=== PATIENT | male | born 1985 | race Caucasian/White ===

== ENCOUNTER 2022-08-14 17:52 | Emergency (ER) | payer OTHER ==
[2022-08-14] MEDS ORDERED: Sodium Chloride 0.9% 1000 ML 1,000 ML IV STA (19:45)
[2022-08-14] MEDS ORDERED: Sodium Chloride 0.9% 1000 ML 1,000 ML ONE (19:47)
[2022-08-14 20:17] LABS: Absolute Neutrophil Ct (ANC) 7.55 x10^3/uL (1.4-6.9); BASOPHIL % 0.7 % (0.0-0.4); Basophil (Absolute #) 0.07 x10^3/uL (0-0.4); Eosinophil % 2.3 % (0.00-5.0); Eosinophil (Absolute #) 0.24 x10^3/uL (0-0.5); Hemoglobin 13.3 g/dL (12.5-18.0); IMMATURE GRAN # 0.03 x10^3u/L (0.00-0.03); IMMATURE GRAN % 0.3 % (0.00-0.4); Lymphocyte (Absolute #) 1.68 x10^3/uL (1.0-4.6); Lymphocytes % 16.2 % (24.0-44.0); Mean Cell Volume 90.1 fL (78-100); Mean Corpuscular Hemoglobin 29.2 pg (26-32); Mean Corpuscular Hgb Concent. 32.4 g/dL (32-36); Mean Platelet Volume 9.5 fL (7.5-11.0); Monocyte (Absolute #) 0.83 x10^3/uL (0.0-1.3); Neutrophil % 72.5 % (36.0-66.0); Platelet Count 406 x10^3/uL (150-450); Red Blood Count 4.55 x10^6/uL (4.1-5.6); Red Cell Distribution Width 12.5 % (11.5-14.0); White Blood Count 10.4 x10^3/uL (4.0-10.5)
[2022-08-14 20:19] VITALS: O2SAT 100
[2022-08-14 20:24] LABS: Appearance Clear (Clear); Bacteria None Seen /HPF (None Seen); Bilirubin Negative (Negative); Blood Negative (Negative); Epithelial Cells None Seen /HPF (None Seen); Glucose, Urine Negative (Negative); Hyaline Casts NONE SEEN /LPF (0-2); Ketones Trace (Negative); Leukocyte Esterase Negative (Negative); Nitrite Negative (Negative); Protein,Urine Dip Negative (Negative); RBC 0-2 /HPF (0-5); Specific Gravity 1.015 (1.005-1.030); WBC 0-2 /HPF (0-5)
[2022-08-14 20:29] LABS: ADD URINE CULTURE? NO (NO)
[2022-08-14 20:32] LABS: ALBUMIN 4.3 g/dL (3.5-5.0); ALKALINE PHOSPHATASE 48 U/L (38-126); ANION GAP 15.9 MEQ/L (5-15); BLOOD UREA NITROGEN 17 mg/dL (9-20); CHLORIDE 100 mmol/L (98-107); Calcium 9.1 mg/dL (8.4-10.2); Carbon Dioxide 24 mmol/L (22-30); Creatinine 1 0.88 mg/dL (0.66-1.25); EST GLOMERULAR FILTRATION RATE > 60.0 ML/MIN; Glucose 101 mg/dL (74-106); Potassium 4.2 mmol/L (3.5-5.1); SGOT/AST 31 U/L (17-59); SGPT/ALT 34 U/L (0-50); SODIUM 136 mmol/L (137-145); Total Protein 7.3 g/dL (6.3-8.2)
--- NOTE | 2022-08-14 21:01 | ERPHSYRPT ---
- History of Present Illness Time Seen by Provider: 08/14/22 20:56 Source: patient Exam Limitations: no limitations Patient Subjective Stated Complaint: pt here for feeling funny at [employer] today, he felt dizzy. this week he states he tripped and fell and busted mouth, was seen and placed on antiboitcs and pain meds. no loc, he thinks that hes meds are making him not feel well because he is not eating well due to mouth injury Triage Nursing Assessment: pt alert, arrived per wc, able to undress self, skin w.d.p, no edema noted, has yellow bruising to nose, and sore to mouth Physician History: Patient is a 37-year-old male presents to our ED with a near syncopal episode at a restaurant. Patient states that he has not been eating as much due to stress. Patient's father recently expectedly . Patient currently on antibiotics, clindamycin for a intraoral mucosal injury sustained a few days ago after a fall. Patient went to the emergency department at that time had a CT head was discharged on clindamycin. Patient otherwise feels well. Patient voices no other complaints or concerns at this time. Portions of this note were created with voice recognition technology. There may be grammatical, spelling, punctuation or sound alike errors Timing/Duration: today Severity: moderate Modifying Factors: Improves With: nothing Associated Symptoms: denies symptoms Allergies/Adverse Reactions: amoxicillin Allergy (Verified 08/14/22 18:13) Home Medications: ALPRAZolam 0.25 MG [xanAX 0.25 MG] 0.25 mg PO DAILY 08/14/22 [History] Dextroamphetamine/Amphetamine [Adderall Xr 25 mg Capsule] 25 mg PO DAILY 08/14/22 [History] Hydrocodone/Acetaminophen [Hydrocodone-Acetamin 5-325 mg] 1 ea QID 08/14/22 [History] clindamycin HCL [Clindamycin HCl] 3 ea TID 08/14/22 [History] Hx Tetanus, Diphtheria Vaccination/Date Given: Yes Hx Influenza Vaccination/Date Given: No Hx Pneumococcal Vaccination/Date Given: No Immunizations Up to Date: Yes Travel Risk - International Travel Have you traveled outside of the country in past 3 weeks: No - Coronavirus Screening Close contact with a COVID-19 positive Pt in past 14-21 Days: No - Vaccine Status Have you recieved a Covid-19 vaccination: Yes Category Analyst: Moderna - Vaccination Dates Date of 2cond Vaccination (if applicable): 2020 - Review of Systems Constitutional: No Symptoms, No Fever, No Chills Eyes: No Symptoms Ears, Nose, & Throat: No Symptoms Respiratory: No Symptoms, No Cough, No Dyspnea Cardiac: No Symptoms, No Chest Pain, No Edema, No Syncope Abdominal/Gastrointestinal: No Symptoms, No Abdominal Pain, No Nausea, No Vomiting, No Diarrhea Genitourinary Symptoms: No Symptoms, No Dysuria Musculoskeletal: No Symptoms, No Back Pain, No Neck Pain Skin: No Symptoms, No Rash Neurological: No Symptoms, No Dizziness, No Focal Weakness, No Sensory Changes Psychological: No Symptoms Endocrine: No Symptoms Hematologic/Lymphatic: No Symptoms Immunological/Allergic: No Symptoms All Other Systems: Reviewed and Negative - Past Medical History Pertinent Past Medical History: No - Past Surgical History Past Surgical History: Yes Gastrointestinal: Appendectomy - Social History Smoking Status: Never smoker Exposure to second hand smoke: No Drug Use: marijuana Patient Lives Alone: No - Nursing Vital Signs Nursing Vital Signs: Initial Vital Signs Temperature 97.2 F 08/14/22 18:11 Pulse Rate 64 08/14/22 18:11 Respiratory Rate 18 08/14/22 18:11 Blood Pressure 124/71 08/14/22 18:11 O2 Sat by Pulse Oximetry 98 08/14/22 18:11 Pain Scale Pain Intensity 3 - Physical Exam General Appearance: no apparent distress, alert Eye Exam: PERRL/EOMI, eyes nml inspection Ears, Nose, Throat Exam: normal ENT inspection, TMs normal, pharynx normal, moist mucous membranes Neck Exam: normal inspection, non-tender, supple, full range of motion Respiratory Exam: normal breath sounds, lungs clear, airway intact, No respiratory distress Cardiovascular Exam: regular rate/rhythm, normal heart sounds, normal peripheral pulses Gastrointestinal/Abdomen Exam: soft, normal bowel sounds, No tenderness, No mass Back Exam: normal inspection, normal range of motion, No CVA tenderness, No vertebral tenderness Extremity Exam: normal inspection, normal range of motion, pelvis stable Neurologic Exam: alert, oriented x 3, cooperative, normal mood/affect, nml cerebellar function, nml station & gait, sensation nml, No motor deficits Skin Exam: normal color, warm, dry, No rash Lymphatic Exam: No adenopathy SpO2 Interpretation: normal SpO2: 100 O2 Delivery: Room Air - Course Nursing assessment & vital signs reviewed: Yes EKG Interpreted by Me: RATE (70), Sinus Rhythm, NORMAL AXIS, NORMAL INTERVALS, Right Bundle Branch Block (Incomplete right bundle branch block.) Ordered Tests: Active Orders 24 hr Category Date Time Status Inspector Technician STAT Care 08/14/22 19:46 Active IV Insertion STAT Care 08/14/22 19:45 Active Pulse Oximetry (ED) STAT Care 08/14/22 19:45 Active CBC W DIFF Stat Lab 08/14/22 20:14 Completed CMP Stat Lab 08/14/22 20:14 Completed TROPONIN Q4H Lab 08/14/22 20:14 Completed TROPONIN Q4H Lab 08/15/22 00:00 Ordered TROPONIN Q4H Lab 08/15/22 04:00 Ordered UA W/RFX UR CULTURE Stat Lab 08/14/22 19:55 Completed Medication Summary Discontinued Medications Generic Name Dose Route Start Last Admin Trade Name Jhonyq PRN Reason Stop Dose Admin Sodium Chloride 1,000 mls @ 999 mls/hr 08/14/22 19:45 08/14/22 19:48 Sodium Chloride 0.9% 1000 Ml IV 08/14/22 20:45 999 mls/hr .Q1H1M STA Administration Sodium Chloride Confirm 08/14/22 19:47 Sodium Chloride 0.9% 1000 Ml Administered 08/14/22 19:48 Dose 1,000 mls @ ud .ROUTE .STK-MED ONE Lab/Rad Data: Laboratory Result Diagrams 08/14/22 20:14 08/14/22 20:14 Laboratory Results 08/14/22 08/14/22 08/14/22 Range/Units 20:14 20:14 20:14 WBC 10.4 (4.0-10.5) x10^3/uL RBC 4.55 (4.1-5.6) x10^6/uL Hgb 13.3 (12.5-18.0) g/dL Hct 41.0 L (42-50) % MCV 90.1 (78-100) fL MCH 29.2 (26-32) pg MCHC 32.4 (32-36) g/dL RDW 12.5 (11.5-14.0) % Plt Count 406 (150-450) x10^3/uL MPV 9.5 (7.5-11.0) fL Gran % 72.5 H (36.0-66.0) % Immature Gran % (Auto) 0.3 (0.00-0.4) % Nucleat RBC Rel Count 0.0 (0.00-0.1) % Eos # (Auto) 0.24 (0-0.5) x10^3/uL Immature Gran # (Auto) 0.03 (0.00-0.03) x10^3u/L Absolute Lymphs (auto) 1.68 (1.0-4.6) x10^3/uL Absolute Monos (auto) 0.83 (0.0-1.3) x10^3/uL Absolute Nucleated RBC 0.00 (0.00-0.01) x10^3u/L Lymphocytes % 16.2 L (24.0-44.0) % Monocytes % 8.0 (0.0-12.0) % Eosinophils % 2.3 (0.00-5.0) % Basophils % 0.7 (0.0-0.4) % Absolute Granulocytes 7.55 H (1.4-6.9) x10^3/uL Basophils # 0.07 (0-0.4) x10^3/uL Sodium 136 L (137-145) mmol/L Potassium 4.2 (3.5-5.1) mmol/L Chloride 100 (98-107) mmol/L Carbon Dioxide 24 (22-30) mmol/L Anion Gap 15.9 H (5-15) MEQ/L BUN 17 (9-20) mg/dL Creatinine 0.88 (0.66-1.25) mg/dL Estimated GFR > 60.0 ML/MIN Glucose 101 (74-106) mg/dL Calcium 9.1 (8.4-10.2) mg/dL Total Bilirubin 0.70 (0.2-1.3) mg/dL AST 31 (17-59) U/L ALT 34 (0-50) U/L Alkaline Phosphatase 48 (38-126) U/L Troponin I < 0.012 (0.000-0.034) ng/mL Serum Total Protein 7.3 (6.3-8.2) g/dL Albumin 4.3 (3.5-5.0) g/dL Urine Color (Yellow) Urine Appearance (Clear) Urine pH (4.6-8.0) Ur Specific [place] (1.005-1.030) Urine Protein (Negative) Urine Glucose (UA) (Negative) mg/dL Urine Ketones (Negative) Urine Blood (Negative) Urine Nitrite (Negative) Urine Bilirubin (Negative) Urine Urobilinogen (0.2) mg/dL Ur Leukocyte Esterase (Negative) U Hyaline Cast (Auto) (0-2) /LPF Urine Microscopic RBC (0-5) /HPF Urine Microscopic WBC (0-5) /HPF Ur Epithelial Cells (None Seen) /HPF Urine Bacteria (None Seen) /HPF Urine Culture Reflexed (NO) 08/14/22 Range/Units 19:55 WBC (4.0-10.5) x10^3/uL RBC (4.1-5.6) x10^6/uL Hgb (12.5-18.0) g/dL Hct (42-50) % MCV (78-100) fL MCH (26-32) pg MCHC (32-36) g/dL RDW (11.5-14.0) % Plt Count (150-450) x10^3/uL MPV (7.5-11.0) fL Gran % (36.0-66.0) % Immature Gran % (Auto) (0.00-0.4) % Nucleat RBC Rel Count (0.00-0.1) % Eos # (Auto) (0-0.5) x10^3/uL Immature Gran # (Auto) (0.00-0.03) x10^3u/L Absolute Lymphs (auto) (1.0-4.6) x10^3/uL Absolute Monos (auto) (0.0-1.3) x10^3/uL Absolute Nucleated RBC (0.00-0.01) x10^3u/L Lymphocytes % (24.0-44.0) % Monocytes % (0.0-12.0) % Eosinophils % (0.00-5.0) % Basophils % (0.0-0.4) % Absolute Granulocytes (1.4-6.9) x10^3/uL Basophils # (0-0.4) x10^3/uL Sodium (137-145) mmol/L Potassium (3.5-5.1) mmol/L Chloride (98-107) mmol/L Carbon Dioxide (22-30) mmol/L Anion Gap (5-15) MEQ/L BUN (9-20) mg/dL Creatinine (0.66-1.25) mg/dL Estimated GFR ML/MIN Glucose (74-106) mg/dL Calcium (8.4-10.2) mg/dL Total Bilirubin (0.2-1.3) mg/dL AST (17-59) U/L ALT (0-50) U/L Alkaline Phosphatase (38-126) U/L Troponin I (0.000-0.034) ng/mL Serum Total Protein (6.3-8.2) g/dL Albumin (3.5-5.0) g/dL Urine Color Yellow (Yellow) Urine Appearance Clear (Clear) Urine pH 6.0 (4.6-8.0) Ur Specific [place] 1.015 (1.005-1.030) Urine Protein Negative (Negative) Urine Glucose (UA) Negative (Negative) mg/dL Urine Ketones Trace A (Negative) Urine Blood Negative (Negative) Urine Nitrite Negative (Negative) Urine Bilirubin Negative (Negative) Urine Urobilinogen 1.0 A (0.2) mg/dL Ur Leukocyte Esterase Negative (Negative) U Hyaline Cast (Auto) NONE SEEN (0-2) /LPF Urine Microscopic RBC 0-2 (0-5) /HPF Urine Microscopic WBC 0-2 (0-5) /HPF Ur Epithelial Cells None Seen (None Seen) /HPF Urine Bacteria None Seen (None Seen) /HPF Urine Culture Reflexed NO (NO) - Progress Progress: improved Progress Note: 37-year-old male presents to our ED with a near syncopal episode at a restaurant. Patient states he has been eating and drinking less. Patient on clindamycin for a intraoral infection. Patient states his urine has been darker than normal. Patient states "I slammed down some drinks about 2 hours ago and I now feel much better. Patient symptoms have resolved. CBC CMP essentially unremarkable. Troponin negative. EKG normal sinus rhythm. IV fluids administered. Patient states he is ready for discharge. Mother at bedside. Patient has no significant past medical history. Stable they voiced no other complaints or concerns at this time. Portions of this note were created with voice recognition technology. There may be grammatical, spelling, punctuation or sound alike errors 08/14/22 20:59 Complexity of problem addressed is moderate, acute with systemic manifestation. No critical care time. Complexity of data reviewed and analyzed is moderate. Dr. Fischer independently reviewed and analyzed the EKG and urinalysis and corresponding laboratory work-up.. Risk of complication and or risk morbidity/mortality of patient management is low. Patient received IV fluids only no other medications administered. No prescriptions. No procedures. We will discharge home. Patient agrees to follow-up with primary care doctor within 48 hours for reevaluation. Expected discharge patient is approximately 10 minutes. Vital stable. Counseled pt/family regarding: lab results, diagnosis, need for follow-up - Departure Departure Disposition: Home Clinical Impression: Near syncope Condition: Stable Critical Care Time: No Referrals: LENORE RAMIREZ [Primary Care Provider] - Follow up/PCP as directed Additional Instructions: Discharge/Care Plan LENORE FLEMING was seen on 08/14/22 in the Emergency Room. The patient was counseled regarding Diagnosis,Lab results, Imaging studies, need for follow up and when to return to the Emergency Room. Prescriptions given: Discharge Note I have spoken with the patient and/or caregivers. I have explained the patient's condition, diagnosis and treatment plan based on the information available to me at this time. I have answered the patient's and/or caregiver's questions and addressed any concerns. The patient and/or caregivers have as good understanding of the patient's diagnosis, condition and treatment plan as can be expected at this point. The vital signs have been stable. The patient's condition is stable and appropriate for discharge from the emergency department. The patient will pursue further outpatient evaluation with the primary care physician or other designated or consulting physician as outlined in the discharge instructions. The patient and/or caregivers are agreeable to this plan of care and follow-up instructions have been explained in detail. The patient and/or caregivers have received these instruction. The patient/and or caregivers are aware that any significant change in condition or worsening of symptoms should prompt an immediate return to this or the closest emergency department or call 911.
[2022-08-14 21:05] VITALS: BP 122/73; PULSE 73
== END 2022-08-14 21:21 | disposition home or self-care (01) ==
LOC: ED 17:52
DX: R55 Syncope and collapse (principal); Z79.891 Long term (current) use of opiate analgesic; Z79.899 Other long term (current) drug therapy
CPT/HCPCS: 36000; 36415; 80053; 81001; 84484; 85025; 93041; 94760; 96360; 99284

== ENCOUNTER 2024-06-30 08:55 | Day surgery (SDC) | payer BC, OTHER ==
--- NOTE | 2024-06-29 12:49 | HP ---
HISTORY AND PHYSICAL HISTORY OF PRESENT ILLNESS: Patient is a 39-year-old male who presents for a followup of some colitis. Last colonoscopy was about 1 year ago. It looks like he is not having much symptoms right now. PAST MEDICAL HISTORY: GERD, colitis. HOME MEDICATIONS: Sulfasalazine, Xanax, pantoprazole. ALLERGIES: Penicillin. PAST SURGICAL HISTORY: Appendectomy. SOCIAL HISTORY: Occasional smoking and alcohol. FAMILY HISTORY: None. REVIEW OF SYSTEMS: CONSTITUTIONAL: Denies fever or chills. CHEST: Denies shortness of breath. CARDIOVASCULAR: Denies chest pain. ABDOMEN: Denies abdominal pain. PHYSICAL EXAMINATION: GENERAL: No acute distress. CARDIOVASCULAR: Regular rate and rhythm. RESPIRATORY: Nonlabored. No shortness of breath. ABDOMEN: Soft. IMPRESSION: History of colitis. PLAN: Colonoscopy with Dr. Joesph Colindres. This report was dictated for Dr. Colindres by Olinda Sorai NP.
[2024-06-30] MEDS: Lactated Ringers 1,000 ML IV SCH (09:13)
[2024-06-30] MEDS ORDERED: propofoL IV ONE ×2 (10:46→11:04)
[2024-06-30] MEDS ORDERED: Versed 2 MG/2 ML Injection ONE (10:47)
[2024-06-30] MEDS ORDERED: GlucaGen 1 MG ONE (10:56)
[2024-06-30 11:44] VITALS: BP 114/68
[2024-06-30 11:49] VITALS: PULSE 70; RESP 18; TEMP 97.9; O2SAT 99
--- NOTE | 2024-07-01 10:11 | OP ---
SURGERY DATE/TIME: 06/30/2024 [id number] PREOPERATIVE DIAGNOSIS: History of colitis, on Azulfidine, presents for yearly/biyearly followup. POSTOPERATIVE DIAGNOSIS: Patient has no mucosal changes today. Basically has a normal mucosa from the anus to the cecum. He does have moderate internal hemorrhoids. He does have moderate spasm of the sigmoid. It looks like he may be starting to form a couple early pouches for diverticulosis in the sigmoid, but they are not totally developed. PROCEDURE: Colonoscopy complete to cecum. SURGEON: Joesph Colindres MD ANESTHESIA: General. COMPLICATIONS: None. CONDITION: Stable. PREPARATION: Excellent. WITHDRAWAL TIME: About 6 minutes. INDICATIONS: The patient has previous history of colitis, on Azulfidine, presents for annual/semiannual exam. DESCRIPTION OF PROCEDURE AND FINDINGS: Patient was taken to endoscopy. Anal digital examination satisfactory. Prostate satisfactory. Scope advanced to the cecum. Picture of the appendiceal orifice. Picture of the ileocecal valve. Base of the cecum normal. Right colon, very normal. From the beginning of the transverse colon and splenic flexure over mucosa, nature of the colon, everything about the colon was totally normal. There was some spasm on the left side, most pronounced in the sigmoid. I thought there might be just the early inklings of a couple beginning diverticula. There certainly was a lot of spasm through the entire sigmoid. I did not see any mucosal changes, however. I did not see any mucosal changes in the rectum. There was moderate internal hemorrhoids. Pérez discussion with the . He is on Azulfidine. I think we could quit that at the moment or put it on hold, see how he does for 3 months without it. He certainly did not have any suggestion of colitis today.
== END 2024-06-30 11:53 | disposition home or self-care (01) ==
LOC: SDC 08:55
PROVIDERS: ATTEND Surgery
DX: Z87.19 Personal history of other diseases of the digestive system (principal); K21.9 Gastro-esophageal reflux disease without esophagitis; K64.8 Other hemorrhoids
CPT/HCPCS: 93005; J1610; J2250; J2704